=== PATIENT | female | born 1990 | race African-American/Black ===

== ENCOUNTER 2019-08-21 14:46 | Observation (INO) | payer MEDICAID ==
[~2019-08-21] VITALS: Ht 157.5 cm; Wt 82.6 kg
[~2019-08-21 14:46] MED LIST: DEPO SHOT; FLUO20CA33
[2019-08-21] MEDS ORDERED: SODIUM CHLORIDE 0.9% 1,000 ML IV SCH (16:00)
[2019-08-21 16:19] LABS: CLARITY URINE CLEAR (CLEAR); COLOR URINE YELLOW (YELLOW); KETONES URINE NEGATIVE (NEGATIVE); LEUKOCYTE ESTERASE URINE NEGATIVE (NEGATIVE); NITRITE URINE NEGATIVE (NEGATIVE); OCCULT BLOOD URINE NEGATIVE (NEGATIVE); PROTEIN URINE NEGATIVE (NEGATIVE); SPECIFIC GRAVITY URINE 1.007 (1.005-1.030); UROBILINOGEN URINE 0.2 E.U./dL (0.2-1.0)
[2019-08-21] MEDS ORDERED: PREN1TAB78 MT (16:21)
== END 2019-08-21 18:00 | disposition home or self-care (01) ==
LOC: 8 EST LDRP 14:46
PROVIDERS: ADMIT Obstetrics & Gynecology; ATTEND Obstetrics & Gynecology
DX: O62.9 Abnormality of forces of labor, unspecified (principal); O26.893 Other specified pregnancy related conditions, third trimester; R10.30 Lower abdominal pain, unspecified; O99.89 Other specified diseases and conditions complicating pregnancy, childbirth and the puerperium; M54.5 Low back pain; Z3A.33 33 weeks gestation of pregnancy
CPT/HCPCS: 76805; 76817; 81003; 82731; 99281; G0378; 96360; J7030

== ENCOUNTER 2019-09-07 08:52 | Observation (INO) | payer MEDICAID ==
[~2019-09-07] VITALS: Ht 154.9 cm; Wt 81.2 kg
[~2019-09-07 08:52] MED LIST changes: -DEPO SHOT; +PREN1TAB78 MT
[2019-09-07] MEDS ORDERED: FLUO10CA25 MT (09:41)
[2019-09-07] MEDS ORDERED: PNV11TAB MT (09:41)
[2019-09-07 10:45] LABS: CLARITY URINE CLEAR (CLEAR); COLOR URINE YELLOW (YELLOW); KETONES URINE NEGATIVE (NEGATIVE); LEUKOCYTE ESTERASE URINE 2+ (NEGATIVE); NITRITE URINE NEGATIVE (NEGATIVE); OCCULT BLOOD URINE NEGATIVE (NEGATIVE); PH URINE 7.5 (4.5-8.0); PROTEIN URINE NEGATIVE (NEGATIVE); SPECIFIC GRAVITY URINE 1.012 (1.005-1.030)
[2019-09-07] MEDS ORDERED: LACTATED RINGERS 1,000 ML IV SCH (11:15)
[2019-09-07] MEDS ORDERED: CEFAZOLIN 2,000 MG in DEXT 5% WATER 100 ML IV NR (12:30)
== END 2019-09-07 12:25 | disposition home or self-care (01) ==
LOC: 8 EST LDRP 08:52 → MERGE 08:52
PROVIDERS: ADMIT Obstetrics & Gynecology; ATTEND Obstetrics & Gynecology
DX: O26.853 Spotting complicating pregnancy, third trimester (principal); Z3A.35 35 weeks gestation of pregnancy
CPT/HCPCS: 76815; 76818; 81003; 96365; 99281; G0378; J0690; J7060; 96360

== ENCOUNTER 2019-09-28 13:52 | Observation (INO) | payer MEDICAID ==
[~2019-09-28 13:52] MED LIST changes: +FLUO10CA25 MT; +PNV11TAB MT
== END 2019-09-28 14:45 | disposition home or self-care (01) ==
LOC: 8 EST LDRP 13:52
PROVIDERS: ADMIT Obstetrics & Gynecology; ATTEND Obstetrics & Gynecology
DX: O62.9 Abnormality of forces of labor, unspecified (principal); Z3A.38 38 weeks gestation of pregnancy
CPT/HCPCS: 99281; G0378

== ENCOUNTER 2019-10-06 06:43 | Inpatient (IN) | payer MEDICAID ==
[~2019-10-06] VITALS: Ht 154.9 cm; Wt 82.6 kg
[2019-10-06] MEDS ORDERED: FLUO10CA25 MT (08:39)
[2019-10-06] MEDS ORDERED: DEXT 5%/LR + PITOCIN 20UNITS/L 1,000 ML IV SCH (09:14)
[2019-10-06] MEDS ORDERED: DEXT 5%/LACTATED RINGERS 1,000 ML IV SCH (09:14)
[2019-10-06] MEDS ORDERED: NALOXONE HCL 0.4 MG/ML 1ML VIAL IM PRN (09:15)
[2019-10-06] MEDS ORDERED: METHYLERGONOVINE MALEATE 0.2 MG/ML IM PRN (09:15)
[2019-10-06] MEDS ORDERED: MINERAL OIL 30ML BOTTLE PO ONE (09:15)
[2019-10-06] MEDS ORDERED: LIDOCAINE HCL 1% 20ML VIAL (Pyxis) INJ INFIL SCH (09:15)
[2019-10-06] MEDS ORDERED: RHO(D) IMMUNE GLOBULIN 300 MCG/SYR IM ONE (09:15)
[2019-10-06 09:25] LABS: BASOPHILS % 0.3 % (0.0-2.0); EOSINOPHILS % 0.6 % (0.0-5.0); HEMATOCRIT. 35.2 % (36.0-48.0); HEMOGLOBIN. 12.3 g/dL (12.0-16.0); LYMPHOCYTES % 26.4 % (20.0-50.0); MEAN CORPUSCULAR HEMOGLOBIN 29.6 pg (28.0-32.0); MEAN CORPUSCULAR VOLUME 84.9 fL (81.0-99.0); MEAN PLATELET VOLUME 10.1 fl (7.4-10.4); MONOCYTES % 9.5 % (2.0-8.0); NEUTROPHILS % 63.2 % (40.0-76.0); PLATELET 185 x1000/uL (130-400); RED BLOOD CELL COUNT 4.15 mill/uL (4.2-5.4); RED CELL DISTRIBUTION WIDTH 13.9 % (11.6-14.6)
[2019-10-06 09:36] LABS: INR 0.9; PROTHROMBIN TIME 9.8 sec (9.6-11.0)
[2019-10-06 09:42] LABS: CLARITY URINE CLEAR (CLEAR); COLOR URINE YELLOW (YELLOW); KETONES URINE NEGATIVE (NEGATIVE); LEUKOCYTE ESTERASE URINE 2+ (NEGATIVE); NITRITE URINE NEGATIVE (NEGATIVE); OCCULT BLOOD URINE NEGATIVE (NEGATIVE); PROTEIN URINE NEGATIVE (NEGATIVE); SPECIFIC GRAVITY URINE 1.012 (1.005-1.030); UROBILINOGEN URINE 0.2 E.U./dL (0.2-1.0)
[2019-10-06 09:56] LABS: *AMPHETAMINES SCREEN URINE NEGATIVE (NEGATIVE); *BARBITURATES SCREEN URINE NEGATIVE (NEGATIVE); *BENZODIAZEPINES SCREEN URINE NEGATIVE (NEGATIVE); *COCAINE SCREEN URINE NEGATIVE (NEGATIVE); CANNABINOID URINE SCREEN NEGATIVE (NEGATIVE); METHADONE URINE SCREEN NEGATIVE (NEGATIVE); PHENCYCLIDINE URINE SCREEN NEGATIVE (NEGATIVE)
[2019-10-06 09:57] LABS: OPIATES URINE SCREEN NEGATIVE (NEGATIVE)
[2019-10-06] MEDS: BUTORPHANOL TARTRATE 2 MG/ML VIAL IV PRN ×3 (10:09→20:40)
[2019-10-06] MEDS ORDERED: ROPIVACAINE HCL/PF EPIDURAL 200 ML EPI SCH (10:15)
[2019-10-06] MEDS: LACTATED RINGERS 1,000 ML IV SCH ×3 (12:33→22:32)
[2019-10-06 13:15] LABS: HEPATITIS B SURFACE ANTIGEN NEGATIVE
[2019-10-06] MEDS ORDERED: ONDANSETRON HCL 4MG/2ML INJ IV PRN (15:30)
[2019-10-06] MEDS: ONDANSETRON HCL 4MG/2ML INJ IV PRN (15:40)
[2019-10-06] MEDS: FLUOXETINE HCL 10 MG CAPSULE PO SCH (16:52)
[2019-10-07] MEDS: LACTATED RINGERS 1,000 ML IV SCH ×3 (04:03→20:21)
[2019-10-07] MEDS ORDERED: LACTATED RINGERS 500ML 500 ML IV SCH (11:15)
[2019-10-07] MEDS: ACETAMINOPHEN 325MG TABLET PO PRN ×2 (13:38→19:31)
[2019-10-07] MEDS: ONDANSETRON HCL 4MG/2ML INJ IV PRN (15:55)
[2019-10-07] MEDS: CEFAZOLIN 2,000 MG in DEXT 5% WATER 100 ML IV SCH (17:28)
[2019-10-07] MEDS ORDERED: ROPIVACAINE HCL/PF EPIDURAL 200 ML EPI ONE (18:44)
[2019-10-07] MEDS ORDERED: CITRIC ACID/SODIUM CITRATE SOLN 30ML UDC PO ONE (19:00)
[2019-10-07] MEDS ORDERED: FENTANYL CITRATE/PF 50MCG/ML 2ML VIAL ONE (20:08)
[2019-10-07] MEDS ORDERED: MORPHINE SULFATE/PF 1MG/ML 10ML AMP ONE (20:08)
[2019-10-07] MEDS ORDERED: CEFAZOLIN SODIUM 1000MG/VIAL ONE (21:46)
[2019-10-07] MEDS ORDERED: OXYTOCIN 10 UNITS/ML 1ML ONE ×2 (21:57→22:37)
[2019-10-07] MEDS ORDERED: DIPHENHYDRAMINE 50MG/ML VIAL ONE (22:01)
[2019-10-07] MEDS ORDERED: METOCLOPRAMIDE HCL 10MG/2ML VIAL ONE (22:01)
[2019-10-07] MEDS ORDERED: ONDANSETRON HCL 4MG/2ML INJ ONE (22:01)
[2019-10-07] MEDS ORDERED: KETOROLAC 60MG/2ML VIAL IM ONE (22:40)
[2019-10-07] MEDS ORDERED: DEXT 5%/LR + PITOCIN 20UNITS/L 1,000 ML IV SCH (23:06)
[2019-10-07] MEDS ORDERED: IBUPROFEN 400MG TABLET PO PRN (23:15)
[2019-10-07] MEDS ORDERED: HYDROCODONE/ACETAMINOPHEN 5/325MG TABLET PO PRN (23:15)
[2019-10-07] MEDS ORDERED: BISACODYL 10MG SUPP PR PRN (23:15)
[2019-10-07] MEDS ORDERED: ONDANSETRON HCL 4MG/2ML INJ IV PRN (23:15)
[2019-10-07] MEDS ORDERED: LANOLIN OINT 7GM TUBE TOP PRN (23:15)
[2019-10-07] MEDS ORDERED: RHO(D) IMMUNE GLOBULIN 300 MCG/SYR IM PRN (23:15)
[2019-10-07] MEDS ORDERED: KETOROLAC 30MG/ML VIAL IV SCH (23:30)
[2019-10-07] MEDS ORDERED: NALOXONE HCL 0.4 MG/ML 1ML VIAL IV PRN (23:30)
[2019-10-07] MEDS ORDERED: BUTORPHANOL TARTRATE 2 MG/ML VIAL IV PRN ×2 (23:30)
[2019-10-07] MEDS ORDERED: DIPHENHYDRAMINE 50MG/ML VIAL IV PRN (23:30)
[2019-10-08] MEDS: ACETAMINOPHEN 325MG TABLET PO PRN (01:02)
[2019-10-08 03:00] VITALS: BP 97/56
[2019-10-08 04:00] VITALS: BP 112/68
[2019-10-08] MEDS ORDERED: TETANUS, DIPHTHERIA, PERTUSSIS VAC/PF 0.5ML (>7YR OLD) IM ONE (06:30)
[2019-10-08] MEDS: CEFAZOLIN 2,000 MG in DEXT 5% WATER 100 ML IV SCH ×3 (07:10→20:31)
[2019-10-08 08:00] VITALS: BP 116/69
[2019-10-08 08:02] LABS: BASOPHILS % 0.3 % (0.0-2.0); HEMATOCRIT. 25.5 % (36.0-48.0); HEMOGLOBIN. 8.8 g/dL (12.0-16.0); LYMPHOCYTES % 8.2 % (20.0-50.0); MEAN CORPUSCULAR HEMOGLOBIN 29.5 pg (28.0-32.0); MEAN PLATELET VOLUME 9.4 fl (7.4-10.4); MONOCYTES % 7.1 % (2.0-8.0); NEUTROPHILS % 84.4 % (40.0-76.0); PLATELET 145 x1000/uL (130-400); RED BLOOD CELL COUNT 2.97 mill/uL (4.2-5.4); RED CELL DISTRIBUTION WIDTH 13.9 % (11.6-14.6)
[2019-10-08] MEDS: FLUOXETINE HCL 10 MG CAPSULE PO SCH (08:25)
[2019-10-08] MEDS: KETOROLAC 30MG/ML VIAL IV SCH ×2 (12:58→18:41)
[2019-10-08] MEDS: PRENATAL VIT/FE FUMARATE/FA TABLET PO SCH (13:00)
[2019-10-08 18:30] VITALS: BP 111/68
[2019-10-08] MEDS ORDERED: GENTAMICIN 60MG PREMIX 50 ML IV SCH (19:00)
[2019-10-08 20:00] VITALS: BP 102/65
[2019-10-08] MEDS ORDERED: GENTAMICIN SULFATE 140 MG in SODIUM CHLORIDE 0.9% 100 ML IV SCH (20:30)
[2019-10-08] MEDS: ACETAMINOPHEN WITH CODEINE 300/30MG TABLET PO PRN (20:31)
[2019-10-08] MEDS: DOCUSATE SODIUM 100MG CAPSULE PO SCH (20:41)
[2019-10-08] MEDS: CLINDAMYCIN 900 MG in DEXTROSE 5% WATER 50 ML IV SCH (21:48)
[2019-10-09] VITALS: BP 108/66
[2019-10-09] MEDS: ACETAMINOPHEN WITH CODEINE 300/30MG TABLET PO PRN ×3 (03:22→18:59)
[2019-10-09 04:00] VITALS: BP 101/64
[2019-10-09] MEDS: CEFAZOLIN 2,000 MG in DEXT 5% WATER 100 ML IV SCH ×3 (05:30→22:00)
[2019-10-09] MEDS: CLINDAMYCIN 900 MG in DEXTROSE 5% WATER 50 ML IV SCH ×3 (06:00→23:24)
[2019-10-09] MEDS: GENTAMICIN 80MG PREMIX 100 ML IV SCH ×2 (06:57→15:11)
[2019-10-09 08:00] VITALS: BP 101/61
[2019-10-09 08:01] LABS: CHLORIDE 107 mEq/L (98-107)
[2019-10-09 08:40] LABS: HEMATOCRIT 23.3 % (36.0-48.0); HEMOGLOBIN 8.2 g/dL (12.0-16.0); MEAN CORPUSCULAR HEMOGLOBIN 29.9 pg (28.0-32.0); MEAN CORPUSCULAR VOLUME 84.6 fL (81.0-99.0); PLATELET 156 x1000/uL (130-400); RED BLOOD CELL COUNT 2.75 mill/uL (4.2-5.4)
[2019-10-09] MEDS: FLUOXETINE HCL 10 MG CAPSULE PO SCH (08:56)
[2019-10-09] MEDS: PRENATAL VIT/FE FUMARATE/FA TABLET PO SCH (08:56)
[2019-10-09 16:00] VITALS: BP 108/75
[2019-10-09 19:35] VITALS: BP 110/70
[2019-10-09] MEDS: DOCUSATE SODIUM 100MG CAPSULE PO SCH (21:19)
[2019-10-10] MEDS: GENTAMICIN 80MG PREMIX 100 ML IV SCH (00:45)
[2019-10-10] MEDS: ACETAMINOPHEN WITH CODEINE 300/30MG TABLET PO PRN ×2 (01:24→08:57)
[2019-10-10 04:15] VITALS: BP 114/68
[2019-10-10] MEDS ORDERED: HYDR-4001 PO (05:20)
[2019-10-10] MEDS ORDERED: IBUP-2028 PO (05:20)
[2019-10-10 08:10] VITALS: BP 106/69
[2019-10-10] MEDS: PRENATAL VIT/FE FUMARATE/FA TABLET PO SCH (08:55)
[2019-10-10] MEDS: FLUOXETINE HCL 10 MG CAPSULE PO SCH (08:55)
[2019-10-10 08:57] VITALS: BP 106/69
== END 2019-10-10 13:35 | disposition home or self-care (01) | DRG 540 ==
LOC: 8 EST LDRP 06:43 → OBSVTOIN 06:43 → 8EST 10-08 02:52
PROVIDERS: ADMIT Obstetrics & Gynecology; ATTEND Obstetrics & Gynecology
PROC: 10907ZC Drainage of Amniotic Fluid, Therapeutic from Products of Conception, Via Natural or Artificial Opening (ICD-10-PCS; 2019-10-06)
PROC: 10D00Z1 Extraction of Products of Conception, Low, Open Approach (ICD-10-PCS; principal; 2019-10-07)
DX: O77.0 Labor and delivery complicated by meconium in amniotic fluid (principal); O61.9 Failed induction of labor, unspecified; Z37.0 Single live birth; Z3A.39 39 weeks gestation of pregnancy; O43.123 Velamentous insertion of umbilical cord, third trimester
CPT/HCPCS: 36415; 80048; 80305; 81003; 85025; 85027; 86592; 86703; 86762; 86850; 86900; 87340; 88307; 90715; G0378; J0595; J0690; J1200; J1580; J1885; J2274; J2405; J2590; J2765; J2795; J3010; J3490; J7050; J7060; J7120; J7121